=== PATIENT | female | born 1990 | race African-American/Black ===

== ENCOUNTER 2018-08-30 17:24 | Emergency (ER) | payer MEDICAID ==
[~2018-08-30] VITALS: Ht 170.2 cm; Wt 95.3 kg
[~2018-08-30 17:24] MED LIST: ACET-704 PO
[2018-08-30 18:02] LABS: BASO # 0.1 x10^3/uL (0.0-0.2); BASO % 1 % (0-3); EOS # 0.1 x10^3/uL (0.0-0.7); EOS % 2 % (0-3); HEMOGLOBIN 11.9 g/dL (12.0-15.5); LYMPH # 2.9 x10^3/uL (1.0-4.8); LYMPH % 40 % (24-48); MEAN CORPUSCULAR HEMOGLOBIN 28 pg (25-35); MEAN CORPUSCULAR HGB CONC 34 g/dL (31-37); MEAN CORPUSCULAR VOLUME 82 fL (79-100); MONO # 0.4 x10^3/uL (0.0-1.1); MONO % 5 % (0-9); NEUT # 3.7 x10^3uL (1.8-7.7); NEUT % 52 % (31-73); PLATELET COUNT 264 x10^3/uL (140-400); RED BLOOD COUNT 4.26 x10^6/uL (3.50-5.40); RED CELL DISTRIBUTION WIDTH 14.1 % (11.5-14.5); WHITE BLOOD COUNT 7.2 x10^3/uL (4.0-11.0)
[2018-08-30 18:04] LABS: BILIRUBIN,URINE NEGATIVE (NEG); CLARITY,URINE TURBID; COLOR,URINE YELLOW; NITRITE,URINE NEGATIVE (NEG); PH,URINE 5.5; PROTEIN,URINE NEGATIVE (NEG-TRACE); UROBILINOGEN,URINE 0.2 mg/dL (0.2 mg/dL)
[2018-08-30 18:12] LABS: CREATININE 0.8 mg/dL (0.6-1.0); GFR 101.9; POTASSIUM 3.6 mmol/L (3.5-5.1)
[2018-08-30 18:15] LABS: BACTERIA,URINE MODERATE /HPF (0-FEW); RBC,URINE 0 /HPF (0-2); SQUAMOUS EPITHELIAL CELL,UR MANY /LPF
[2018-08-30 21:04] VITALS: BP 99/57
--- NOTE | 2018-08-30 21:14 | PHYS DOC ---
Past Medical History Past Medical History: Asthma, Seizure Past Surgical History: Alcohol Use: None Drug Use: None Adult General Chief Complaint Chief Complaint: VAGINAL BLEEDING HPI HPI 28-year-old female presents to ER with concerns of as she took a test yesterday which was positive. Patient reports she went off control 08/07/18 and has had intermittent vaginal spotting, lower abdominal cramping, and intermittent nausea. Patient reports last regular menses was Jul 03-. She reports she is including this . Patient reports she has had some vaginal spotting today denying soaking through multiple pads. Patient denies any vomiting or diarrhea, fever, urinary symptoms, dizziness, or lightheadedness. Patient reports she has had regular appetite. She denies any sexual intercourse in the past 48 hours. Review of Systems Review of Systems Constitutional: Denies fever or chills [] Respiratory: Denies cough or shortness of breath [] Cardiovascular: No additional information not addressed in HPI [] GI: Denies vomiting, bloody stools or diarrhea. Reports mid lower abdominal cramping intermittent and intermittent nausea for the past few weeks. Denies pelvic pain or pressure. : Denies dysuria or hematuria. Reports intermittent vaginal spotting Musculoskeletal: Denies back pain or joint pain [] Integument: Denies rash, swelling or skin lesions [] Neurologic: Denies headache, focal weakness or sensory changes. Denies dizziness or lightheadedness All other systems were reviewed and found to be within normal limits, except as documented in this note. Allergies Allergies Allergies Coded Allergies Type Severity Reaction Last Updated Verified mercury (elemental) Allergy Intermediate Rash 11/06/16 Yes Physical Exam Physical Exam Constitutional: Well developed, well nourished, no acute distress, non-toxic appearance. [] HENT: Normocephalic, atraumatic, oropharynx moist, nose normal. [] Eyes: pupils equal, conjunctiva normal, no discharge. [] Neck: Normal range of motion, no tenderness, supple Cardiovascular:Heart rate regular rhythm, no murmur [] Lungs & Thorax: Bilateral breath sounds clear to auscultation. Resp. equal/ nonlabored Abdomen: Bowel sounds normal, soft-no distention or rigidity, mild tenderness suprapubic, no masses, no pulsatile masses. [] Skin: Warm, dry, no erythema, no rash. [] Back: No tenderness, no CVA tenderness. [] Extremities: No tenderness, no cyanosis, no clubbing, ROM intact, no edema. [] Neurologic: Alert and oriented X 3, normal motor function, normal sensory function, no focal deficits noted. [] Psychologic: Affect normal, judgement normal, mood normal. [] Current Patient Data Vital Signs Vital Signs Date Time Temp Pulse Resp B/P (MAP) Pulse Ox O2 Delivery O2 Flow Rate FiO2 08/30/18 21:04 83 12 99/57 (71) 99 Room Air 08/30/18 17:57 98.7 98.7 Lab Values Laboratory Tests Test 08/30/18 17:34 08/30/18 17:55 08/30/18 17:58 Urine Collection Type Unknown Urine Color Yellow Urine Clarity Turbid Urine pH 5.5 Urine Specific [place] >=1.030 Urine Protein Negative mg/dL (NEG-TRACE) Urine Glucose (UA) Negative mg/dL (NEG) Urine Ketones (Stick) Negative mg/dL (NEG) Urine Blood Negative (NEG) Urine Nitrite Negative (NEG) Urine Bilirubin Negative (NEG) Urine Urobilinogen Dipstick 0.2 mg/dL (0.2 mg/dL) Urine Leukocyte Esterase Moderate (NEG) Urine RBC 0 /HPF (0-2) Urine WBC 5-10 /HPF (0-4) Urine Squamous Epithelial Cells Many /LPF Urine Bacteria Moderate /HPF (0-FEW) Urine Mucus Marked /LPF POC Urine HCG, Qualitative Hcg positive (Negative) White Blood Count 7.2 x10^3/uL (4.0-11.0) Red Blood Count 4.26 x10^6/uL (3.50-5.40) Hemoglobin 11.9 g/dL (12.0-15.5) L Hematocrit 35.0 % (36.0-47.0) L Mean Corpuscular Volume 82 fL (79-100) Mean Corpuscular Hemoglobin 28 pg (25-35) Mean Corpuscular Hemoglobin Concent 34 g/dL (31-37) Red Cell Distribution Width 14.1 % (11.5-14.5) Platelet Count 264 x10^3/uL (140-400) Neutrophils (%) (Auto) 52 % (31-73) Lymphocytes (%) (Auto) 40 % (24-48) Monocytes (%) (Auto) 5 % (0-9) Eosinophils (%) (Auto) 2 % (0-3) Basophils (%) (Auto) 1 % (0-3) Neutrophils # (Auto) 3.7 x10^3uL (1.8-7.7) Lymphocytes # (Auto) 2.9 x10^3/uL (1.0-4.8) Monocytes # (Auto) 0.4 x10^3/uL (0.0-1.1) Eosinophils # (Auto) 0.1 x10^3/uL (0.0-0.7) Basophils # (Auto) 0.1 x10^3/uL (0.0-0.2) Maternal Serum HCG Beta Subunit 9584 mIU/mL (0-5) H Sodium Level 138 mmol/L (136-145) Potassium Level 3.6 mmol/L (3.5-5.1) Chloride Level 103 mmol/L (98-107) Carbon Dioxide Level 26 mmol/L (21-32) Anion Gap 9 (6-14) Blood Urea Nitrogen 17 mg/dL (7-20) Creatinine 0.8 mg/dL (0.6-1.0) Estimated GFR (Cockcroft-Gault) 101.9 Glucose Level 84 mg/dL (70-99) Calcium Level 9.0 mg/dL (8.5-10.1) Laboratory Tests 08/30/18 17:58 Laboratory Tests 08/30/18 17:58 Microbiology 08/30/18 Wet Prep - Final, Complete EKG EKG [] Radiology/Procedures Radiology/Procedures Pelvic Exam: ZULAY Soliz present at 2019 Abdomen: Mild tenderness suprapubic- no mass/abd distention/rigidity External Genitalia: Normal Skin- no rash/lesions/swelling/erythema Speculum: Normal vaginal mucosa, scant amt of thin white non-malodorous discharge in vaginal vault. Cervical os closed and no blood in vaginal vault Bimanual: No adnexal masses or tenderness, No CMT PROCEDURE: OB <14 WKS W/TV Examination: OB <14 WKS W/TV History: spotting x 1 month, pain
?lmp 07/03/18

gs seen, questionable ys, no fp seen at this time

fibroid rt lat ut 1.1 x 1.2 x 1.3 cm
lo cyst 1.5 x 1.1 x 1.0 cm Comparison/Correlation: 11/06/2016 OB ultrasound exam Findings: Mean gestational sac diameter of 0.86 cm corresponds to 5 weeks 5 days gestation. No pole. Yolk sac is not definitely identified. Uterus measures 11 cm x 7.2 cm x 5.9 cm. Fibroid involves the right lateral aspect of the uterus measuring 1.3 cm. Left ovarian follicle measuring 1.5 cm is present. Left ovary measures 4.9 cm x 3.3 cm x 2.3 cm. Right ovary measures 3.5 cm x 2.18 x 2.1 cm. EDC by ultrasound is 04/27/2019. No pelvic free fluid. Impression: Intrauterine gestational sac with mean diameter of 0.86 cm corresponding to 5 weeks 5 day gestation. No subchorionic hemorrhage. Small fibroid involves the myometrium. Electronically signed by: Ildefonso Hernandez MD (08/30/2018 9:22 PM) [facility] DICTATED and SIGNED BY: ILDEFONSO HERNANDEZ MD DATE: 08/30/182116 Course & Med Decision Making Course & Med Decision Making Pertinent Labs and Imaging studies reviewed. (See chart for details) Test results were discussed with pt and her husb. Pt had verified while in ER with beta HCG quant of 9584 with US showing "Intrauterine gestational sac with mean diameter of 0.86 cm corresponding to 5 weeks 5 day gestation. No subchorionic hemorrhage. Small fibroid involves the myometrium"- no free fld noted on report and EDC 04/27/19. Pt's pelvic exam unremarkable with cervix os closed and blood in vaginal vault/active bleeding. Discussed yeast noted on wet prep and advised pt on OTC monistat for tx as directed on container. Was noted on wet prep of possible BV lalit- pt denied any vaginal sxs concerning for infection and on exam had scant amt of thin white discharge which was nonmalodorous- and pt had no CMT on exam. Pt had no concerns for vaginal infection and so will hold off on tx which she is planning for f/u with [facility]IC this week. Pt reported she had [place] with previous 2 pregnancies and so T&C was obtained- there was a delay with lab obtaining specimen and with pt having 2 young children, having no vaginal bleeding, and early in at 5 wks 5 days she requested to be discharged. Pt reports she will further discuss this with her BOOK CRITIC- will provide Dr. Moe, [facility] CR[facility]IC referral info. Other labs were discussed- H&H 11.9/35.0 and UA neg. for protein/ blood/ketones/nitrates- moderate leuks with 5-10 WBCs on micro with many squamous/moderate bacteria. This was discussed with pt and she denies having any urinary sxs and so possible contamination so will hold off on tx. Pt advised on urinary s&s to have re-eval. for. Discussed threatened miscarriage. Discussed vitamins daily and well- balanced meals with plenty of fluids. Discussed pt f/u with [facility] CR[facility]IC in next 2-3 days sooner with any concerns. Education provided on s&s to return to ER for and discharge instructions were discussed. Pt denies any vaginal bleeding while in ER and reports at time of discharge discussion that she was having no abd pain/cramping or lower back pain. Dragon Disclaimer Dragon Disclaimer This electronic medical record was generated, in whole or in part, using a voice recognition dictation system. Departure Departure Impression: Primary Impression: Threatened miscarriage Disposition: HOME, SELF-CARE Condition: STABLE Referrals: NO PCP (PCP) Patient Instructions: , Threatened Miscarriage Additional Instructions: As discussed you need to establish a [facility] doctor for further care during her . Your tests showed you have a used infection you can use [id number] Monistat as directed on container and discussed this with your [facility] doctor for further testing. Drink plenty of water and eat well-balanced meals. You can start taking over-the -counter vitamins as directed on container. If you start soaking through 1-2 peripads in an hour with vaginal bleeding you should be evaluated by B[facility] CR[facility]IC or return to Emergency Department. Follow-up on your test results as discussed. Attending Signature Attending Signature I have reviewed the PA/RFID TECHNICIAN's note and plan of care. I was available for consultation as needed during the patient's visit in the emergency department. I agree with the clinical impression, plan, and disposition. LASHAUN FIGUEROA APRN Aug 30, 2018 21:14 HARMONY MCGILL DO Sep 01, 2018 14:56
--- NOTE | 2018-08-30 21:25 | RAD ---
Examination: OB <14 WKS W/TV History: spotting x 1 month, pain
?lmp 07/03/18

gs seen, questionable ys, no fp seen at this time

fibroid rt lat ut 1.1 x 1.2 x 1.3 cm
lo cyst 1.5 x 1.1 x 1.0 cm Comparison/Correlation: 11/06/2016 OB ultrasound exam Findings: Mean gestational sac diameter of 0.86 cm corresponds to 5 weeks 5 days gestation. No pole. Yolk sac is not definitely identified. Uterus measures 11 cm x 7.2 cm x 5.9 cm. Fibroid involves the right lateral aspect of the uterus measuring 1.3 cm. Left ovarian follicle measuring 1.5 cm is present. Left ovary measures 4.9 cm x 3.3 cm x 2.3 cm. Right ovary measures 3.5 cm x 2.18 x 2.1 cm. EDC by ultrasound is 04/27/2019. No pelvic free fluid. Impression: Intrauterine gestational sac with mean diameter of 0.86 cm corresponding to 5 weeks 5 day gestation. No subchorionic hemorrhage. Small fibroid involves the myometrium. Electronically signed by: Ildefonso Gibbs MD (08/30/2018 9:22 PM) [facility]
[2018-09-02 15:27] LABS: GC PROBE Negative (Negative)
== END 2018-08-30 21:45 | disposition home or self-care (01) ==
LOC: ER 17:24
DX: O20.0 Threatened abortion (principal); O99.511 Diseases of the respiratory system complicating pregnancy, first trimester; J45.909 Unspecified asthma, uncomplicated; R11.0 Nausea; Z3A.01 Less than 8 weeks gestation of pregnancy; Z88.8 Allergy status to other drugs, medicaments and biological substances
CPT/HCPCS: 36415; 76801; 76817; 80048; 81001; 81025; 84702; 85025; 86850; 86900; 86901; 87086; 87491; 87591; 99285; Q0111; 87186

== ENCOUNTER 2018-09-13 10:36 | Emergency (ER) | payer MEDICAID ==
[~2018-09-13] VITALS: Ht 170.2 cm; Wt 92.5 kg
[2018-09-13 11:45] LABS: BILIRUBIN,URINE NEGATIVE (NEG); CLARITY,URINE CLOUDY; COLOR,URINE YELLOW; NITRITE,URINE NEGATIVE (NEG); PROTEIN,URINE NEGATIVE (NEG-TRACE)
[2018-09-13] MEDS ORDERED: METOCLOPRAMIDE HCL 10 MG/2 ML VIAL. IV ONE (11:45)
[2018-09-13 11:46] LABS: BASO % 1 % (0-3); EOS # 0.1 x10^3/uL (0.0-0.7); EOS % 1 % (0-3); HEMATOCRIT 35.2 % (36.0-47.0); HEMOGLOBIN 11.9 g/dL (12.0-15.5); LYMPH # 2.5 x10^3/uL (1.0-4.8); LYMPH % 32 % (24-48); MEAN CORPUSCULAR HEMOGLOBIN 28 pg (25-35); MEAN CORPUSCULAR HGB CONC 34 g/dL (31-37); MEAN CORPUSCULAR VOLUME 82 fL (79-100); MONO # 0.3 x10^3/uL (0.0-1.1); MONO % 4 % (0-9); NEUT # 4.9 x10^3uL (1.8-7.7); NEUT % 62 % (31-73); PLATELET COUNT 264 x10^3/uL (140-400); RED BLOOD COUNT 4.29 x10^6/uL (3.50-5.40); RED CELL DISTRIBUTION WIDTH 14.5 % (11.5-14.5); WHITE BLOOD COUNT 7.8 x10^3/uL (4.0-11.0)
[2018-09-13 11:54] LABS: BACTERIA,URINE MODERATE /HPF (0-FEW); RBC,URINE 0 /HPF (0-2); SQUAMOUS EPITHELIAL CELL,UR MANY /LPF
[2018-09-13 11:59] LABS: CREATININE 0.8 mg/dL (0.6-1.0); GFR 101.9; POTASSIUM 3.6 mmol/L (3.5-5.1)
[2018-09-13] MEDS ORDERED: IV NORMAL SALINE 1000ML BAG 1,000 ML IV SCH (12:00)
[2018-09-13 12:06] LABS: ALBUMIN 3.9 g/dL (3.4-5.0); TOTAL BILIRUBIN 0.4 mg/dL (0.2-1.0)
--- NOTE | 2018-09-13 12:32 | PHYS DOC ---
Past Medical History Past Medical History: Asthma, Seizure Past Surgical History: Alcohol Use: None Drug Use: None Adult General Chief Complaint Chief Complaint: ABDOMINAL PAIN IN HPI HPI Patient is a 28 year old female presented to ER today for evaluation of nausea , vomiting, no abdominal cramping. Patient says she is a week , her last menstrual period was on July 03, 2018. Patient said yesterday see when she wiped herself she noted blood on the tissue paper. sHe denies any vaginal bleeding today. She denies any fever. She denies any chest pain, no trouble breathing. Patient was seen here last week for the same problem, had a pelvic ultrasound then, confirm IUP. At that time she was recommended that program injection but she was in a hurry to go home so she did not get it. Review of Systems Review of Systems Constitutional: Denies fever or chills [] Eyes: Denies change in visual acuity, redness, or eye pain [] HENT: Denies nasal congestion or sore throat [] Respiratory: Denies cough or shortness of breath [] Cardiovascular: No additional information not addressed in HPI [] GI: Positive for abdominal pain, nausea, vomiting, NO bloody stools or diarrhea [] : Positive for dysuria and frequent urination, no hematuria. Musculoskeletal: Denies back pain or joint pain [] Integument: Denies rash or skin lesions [] Neurologic: Denies headache, focal weakness or sensory changes [] Endocrine: Denies polyuria or polydipsia [] All other systems were reviewed and found to be within normal limits, except as documented in this note. Current Medications Current Medications Current Medications Medications (Trade) Dose Ordered Sig/Toño Start Time Stop Time Status Last Admin Dose Admin Ceftriaxone Sodium 50 ml @ 100 mls/hr 1X ONCE 09/13/18 13:00 09/13/18 13:30 DC 09/13/18 13:08 100 MLS/HR Metoclopramide HCl (Reglan Vial) 10 mg 1X ONCE 09/13/18 11:45 09/13/18 11:46 DC 09/13/18 11:48 10 MG Sodium Chloride 1,000 ml @ 1,000 mls/hr 1X ONCE 09/13/18 13:00 09/13/18 13:59 09/13/18 13:09 1,000 MLS/HR Allergies Allergies Allergies Coded Allergies Type Severity Reaction Last Updated Verified iodine Allergy Intermediate 09/13/18 Yes mercury (elemental) Allergy Intermediate Rash 11/06/16 Yes shellfish derived Allergy Intermediate 09/13/18 Yes Physical Exam Physical Exam Constitutional: Well developed, well nourished, no acute distress, non-toxic appearance. [] HENT: Normocephalic, atraumatic, bilateral external ears normal, oropharynx moist, no oral exudates, nose normal. [] Eyes: PERRLA, EOMI, conjunctiva normal, no discharge. [] Neck: Normal range of motion, no tenderness, supple, no stridor. [] Cardiovascular:Heart rate regular rhythm, no murmur [] Lungs & Thorax: Bilateral breath sounds clear to auscultation [] Abdomen: Bowel sounds normal, soft, no tenderness, no masses, no pulsatile masses. [] Skin: Warm, dry, no erythema, no rash. [] Back: No tenderness, no CVA tenderness. [] Extremities: No tenderness, no cyanosis, no clubbing, ROM intact, no edema. [] Neurologic: Alert and oriented X 3, normal motor function, normal sensory function, no focal deficits noted. [] Psychologic: Affect normal, judgement normal, mood normal. [] Current Patient Data Vital Signs Vital Signs Date Time Temp Pulse Resp B/P (MAP) Pulse Ox O2 Delivery O2 Flow Rate FiO2 09/13/18 12:23 76 17 99/55 (70) Room Air 09/13/18 11:23 99 09/13/18 10:38 98.5 98.5 Lab Values Laboratory Tests Test 09/13/18 10:45 09/13/18 11:10 Urine Collection Type Unknown Urine Color Yellow Urine Clarity Cloudy Urine pH 6.0 Urine Specific [place] >=1.030 Urine Protein Negative mg/dL (NEG-TRACE) Urine Glucose (UA) Negative mg/dL (NEG) Urine Ketones (Stick) Negative mg/dL (NEG) Urine Blood Negative (NEG) Urine Nitrite Negative (NEG) Urine Bilirubin Negative (NEG) Urine Urobilinogen Dipstick 1.0 mg/dL (0.2 mg/dL) Urine Leukocyte Esterase Large (NEG) Urine RBC 0 /HPF (0-2) Urine WBC 5-10 /HPF (0-4) Urine Squamous Epithelial Cells Many /LPF Urine Bacteria Moderate /HPF (0-FEW) Urine Mucus Mod /LPF White Blood Count 7.8 x10^3/uL (4.0-11.0) Red Blood Count 4.29 x10^6/uL (3.50-5.40) Hemoglobin 11.9 g/dL (12.0-15.5) L Hematocrit 35.2 % (36.0-47.0) L Mean Corpuscular Volume 82 fL (79-100) Mean Corpuscular Hemoglobin 28 pg (25-35) Mean Corpuscular Hemoglobin Concent 34 g/dL (31-37) Red Cell Distribution Width 14.5 % (11.5-14.5) Platelet Count 264 x10^3/uL (140-400) Neutrophils (%) (Auto) 62 % (31-73) Lymphocytes (%) (Auto) 32 % (24-48) Monocytes (%) (Auto) 4 % (0-9) Eosinophils (%) (Auto) 1 % (0-3) Basophils (%) (Auto) 1 % (0-3) Neutrophils # (Auto) 4.9 x10^3uL (1.8-7.7) Lymphocytes # (Auto) 2.5 x10^3/uL (1.0-4.8) Monocytes # (Auto) 0.3 x10^3/uL (0.0-1.1) Eosinophils # (Auto) 0.1 x10^3/uL (0.0-0.7) Basophils # (Auto) 0.0 x10^3/uL (0.0-0.2) Maternal Serum HCG Beta Subunit 44182 mIU/mL (0-5) H Sodium Level 137 mmol/L (136-145) Potassium Level 3.6 mmol/L (3.5-5.1) Chloride Level 102 mmol/L (98-107) Carbon Dioxide Level 24 mmol/L (21-32) Anion Gap 11 (6-14) Blood Urea Nitrogen 12 mg/dL (7-20) Creatinine 0.8 mg/dL (0.6-1.0) Estimated GFR (Cockcroft-Gault) 101.9 BUN/Creatinine Ratio 15 (6-20) Glucose Level 97 mg/dL (70-99) Calcium Level 9.0 mg/dL (8.5-10.1) Total Bilirubin 0.4 mg/dL (0.2-1.0) Aspartate Amino Transferase (AST) 15 U/L (15-37) Alanine Aminotransferase (ALT) 21 U/L (14-59) Alkaline Phosphatase 67 U/L (46-116) Total Protein 8.0 g/dL (6.4-8.2) Albumin 3.9 g/dL (3.4-5.0) Albumin/Globulin Ratio 1.0 (1.0-1.7) Lipase 145 U/L (73-393) Laboratory Tests 09/13/18 11:10 Laboratory Tests 09/13/18 11:10 EKG EKG [] Radiology/Procedures Radiology/Procedures [] Course & Med Decision Making Course & Med Decision Making Pertinent Labs and Imaging studies reviewed. (See chart for details) [] Dragon Disclaimer Dragon Disclaimer This electronic medical record was generated, in whole or in part, using a voice recognition dictation system. Departure Departure Impression: Primary Impression: Hyperemesis gravidarum Additional Impression: UTI (urinary tract infection) Disposition: HOME, SELF-CARE Condition: IMPROVED Referrals: NO PCP (PCP) FOLLOW UP WITH YOUR HEAD SCORER DOCTOR NEXT WEEK Patient Instructions: Diet - Hyperemesis Gravidarum, Hyperemesis Gravidarum, Urinary Tract Infection Scripts Cephalexin (CEPHALEXIN) 500 Mg Capsule 1 CAP PO QID for 7 Days, #28 CAP Prov: COLE WALKER DO 09/13/18 Metoclopramide Hcl (REGLAN) 10 Mg Tablet 1 TAB PO QID PRN for NAUSEA, #30 TAB Prov: COLE WALKER DO 09/13/18 Problem Qualifiers COLE WALKER DO Sep 13, 2018 12:32
[2018-09-13] MEDS ORDERED: IV NORMAL SALINE 1000ML BAG 1,000 ML IV ONE (13:00)
[2018-09-13] MEDS ORDERED: CEPH500C PO (13:45)
[2018-09-13] MEDS ORDERED: METO10TA81 PO (13:45)
[2018-09-13 14:23] VITALS: BP 102/70
== END 2018-09-13 14:30 | disposition home or self-care (01) ==
LOC: ER 10:36
DX: O21.0 Mild hyperemesis gravidarum (principal); O23.41 Unspecified infection of urinary tract in pregnancy, first trimester; O99.511 Diseases of the respiratory system complicating pregnancy, first trimester; J45.909 Unspecified asthma, uncomplicated; Z98.890 Other specified postprocedural states; Z91.041 Radiographic dye allergy status; Z91.013 Allergy to seafood; Z91.048 Other nonmedicinal substance allergy status; Z3A.10 10 weeks gestation of pregnancy
CPT/HCPCS: 36415; 36430; 80053; 81001; 83690; 84702; 85025; 86850; 86900; 86901; 87086; 96361; 96365; 96375; 99285; J0690; J2765; J2791; J7030